=== PATIENT | female | born 1965 | race Two or more races ===

== ENCOUNTER 2024-09-08 22:13 | Emergency (ER) | payer SELFPAY ==
[~2024-09-08] VITALS: Ht 167.6 cm; Wt 90.9 kg
--- NOTE | 2024-09-09 00:40 | ED.PDOC ---
History of Present Illness(SKN HPI Comments PRESENTS TO ED FOR ALLERGIC REACTION AFTER MISTAKENLY TOOK AUGMENTIN THIS MORNING. PATIENT REPORTS ALLERGIC REACTION TO PENICILLIN. STATES THAT SHE IS ON UNKNOWN ANTIBIOTIC BECAUSE SHE IS NOT FEELING WELL. BUT ACCIDENTALLY TOOK HER 'S AUGMENTIN. STARTED TO FEEL HEADACHE AND COUGH. SKIN IS INTACT. LUNG SOUNDS CLEAR. NO RASHES NOTED. CHEST PAIN, DIFFICULTY BREATHING, SHORTNESS OF BREATH, THROAT SWELLING, DIFFICULTY SWALLOWING. Chief Complaint: Allergic Reaction Time Seen by MD: 22:29 History of Present Illness: Nurses Notes, Medications, Allergies Allergies: Coded Allergies: Penicillins (Verified Allergy, Unknown, 09/08/24) Information Source: Patient Mode of Arrival: Ambulatory Past Medical History PAST MEDICAL HISTORY: Denies Surgical History: Denies all surgeries [employer] History: No Pertinent [employer]ANGER History Family History Family History: Reviewed,noncontributory to illness Social History Smoker: Non-Smoker Alcohol: Denies ETOH Use Drugs: Denies Drug Use Constitutional: denies: chills, diaphoresis, fatigue, fever, malaise, sweats, weakness, others EENTM: denies: blurred vision, double vision, ear bleeding, ear discharge, ear drainage, ear pain, ear ringing, eye pain, eye redness, hearing loss, mouth pain, mouth swelling, nasal discharge, nose bleeding, nose congestion, nose pain, photophobia, tearing, throat pain, throat swelling, voice changes, others Respiratory: reports: cough; denies: hemoptysis, orthopnea, SOB at rest, shortness of breath, SOB with excertion, stridor, wheezing, others Cardiovascular: denies: chest pain, dizzy spells, diaphoresis, Dyspnea on exertion, edema, irregular heart beat, left arm pain, lightheadedness, palpitations, PND, syncope, others Gastrointestinal: denies: abdomen distended, abdominal pain, blood streaked bowels, constipated, diarrhea, dysphagia, difficulty swallowing, hematemesis, melena, nausea, poor appetite, poor fluid intake, rectal bleeding, rectal pain, vomiting, others Genitourinary: denies: abnormal vagina bleeding, burning, dyspareunia, dysuria, flank pain, frequency, hematuria, incontinence, pain, , vagina discharge, urgency, others Neurological: denies: dizziness, fainting, headache, left sided numbness, left sided weakness, numbness, paresthesia, pre-existing deficit, right sided numbness, right sided weakness, seizure, speech problems, tingling, tremors, weakness, others Musculoskeletal: denies: back pain, gout, joint pain, joint swelling, muscle pain, muscle stiffness, neck pain, others Integumetry: denies: bruises, change in color, change in hair/nails, dryness, laceration, lesions, lumps, rash, wounds, others Allergic/Immunocompromised: denies: Difficulty Healing, Frequent Infections, Hives, Itching, others Hematologic/Lymphatic: denies: anemia, blood clots, easy bleeding, easy bruising, swollen glands, others Endocrine: denies: excessive hunger, excessive sweating, excessive thirst, excessive urination, flushing, intolerance to cold, intolerance to heat, unexplained weight gain, unexplained weight loss, others Psychiatric: denies: anxiety, bipolar disorder, depression, hopeless, panic disorder, schizophrenia, sleepless, suicidal, others Physical Exam General Appearance: No Apparent Distress, Normal HEENT: Normal ENT Inspection, Pharynx Normal, TMs Normal Neck: Full Range of Motion, Non-Tender Respiratory: Lungs Clear, No Accessory Muscle Use, No Respiratory Distress, Normal Breath Sounds Cardiovascular: No Edema, No JVD, No Murmur, No Gallop, Normal Peripheral Pulses, Regular Rate/Rhythm Breast Exam: Deferred Gastrointestinal: No Organomegaly, Non Tender, No Pulsatile Mass, Normal Bowel Sounds, Soft Genitalia: Deferred Pelvic: Deferred Rectal: Deferred Extremities: Normal capillary refill, Normal inspection, Normal range of motion, Non-tender, No pedal edema Musculoskeletal : Apperance: Normal Neurologic: Alert, personal coach II-XII nml as Tested, No Motor Deficits, Normal Affect, Normal Mood, No Sensory Deficits Cerebellar Function: Normal Reflexes: Normal Skin: Dry, Normal Color, Warm Lymphatic: No Adenopathy Was a procedure done? Was a procedure done?: No Differential Diagnosis (INTG) Differential Diagnosis: Cellulitis X-Ray, Labs, Meds, VS Vital Signs Date Time Temp Pulse Resp B/P (MAP) Pulse Ox O2 Delivery O2 Flow Rate FiO2 09/08/24 23:03 98.8 88 16 143/73 (96) 95 09/08/24 23:03 16 95 Room Air* 0 21 X-Ray, Labs, Meds, VS Comment ADVISED PATIENT TO START AUGMENTIN. PATIENT GIVEN PEPCID 4 MG P.O., BENADRYL 25 MG IM, AND DECADRON 10 MG IM. ADVISED TO REST INCREASE P.O. FLUIDS WITH ELECTROLYTES. [id number] TYLENOL AND MOTRIN NEEDED FOR FEVER PER LABELED DOSING INSTRUCTIONS. ADVISED TO FOLLOW UP WITH HER PCP WITHIN 2-3 DAYS NECESSARY ER RETURN PRECAUTIONS GIVEN PATIENT INDICATED UNDERSTANDING AGREES WITH DISCHARGE PLAN OF CARE. Time of 1ST Reevaluation: 00:46 Reevaluation 1ST: Improved Patient Education/Counseling: Diagnosis, Treatment, Prognosis, Need For Follow Up Family Education/Counseling: Diagnosis, Treatment, Prognosis, Need For Follow Up Departure 1 Departure Time of Disposition: 00:46 Impression: Primary Impression: Allergic reaction Qualified Codes: T78.40XA - Allergy, unspecified, initial encounter Disposition: HOME / SELF CARE / HOMELESS Condition: Stable Discharged With: Spouse Critical Care Note Critical Care Time?: No Stability Stability form required: JENNIFER Dixon Sep 09, 2024 00:40
[2024-09-09] MEDS: FAMOTIDINE 20 MG TAB PO ONE (01:06)
[2024-09-09] MEDS: DexAMETHasone SOD PHOS 10MG/1ML VIAL INJ IM ONE (01:06)
[2024-09-09] MEDS: diphenhdrAMINE HCL 50 MG/1 ML VL IM ONE (01:06)
[2024-09-09 01:13] VITALS: BP 102/72; PULSE 96; RESP 17; TEMP 98.8; O2SAT 98
== END 2024-09-09 01:43 | disposition home or self-care (01) ==
LOC: ER 22:13
DX: T78.40XA Allergy, unspecified, initial encounter (principal); Z88.0 Allergy status to penicillin; X58.XXXA Exposure to other specified factors, initial encounter
CPT/HCPCS: 96372; 99284; J1100; J1200